=== PATIENT | female | born 1970 | race Caucasian/White ===

== ENCOUNTER → 2017-08-09 | Outpatient (CLI) | payer OTHER ==
--- NOTE | 2017-08-09 15:53 | RAD ---
EXAM: Cervical spine, 3 views; thoracic spine, 3 views. HISTORY: Nontraumatic pain. COMPARISON: None. FINDINGS: Cervical spine: Frontal, lateral and odontoid views of the cervical spine are obtained. There is slight reversal of cervical lordosis, likely positional. There is no significant listhesis. The vertebral bodies are normal in height and the disc spaces are preserved. Thoracic spine: Frontal, lateral and swimmer's views of the thoracic spine are obtained. There is minimal thoracic dextroscoliosis centered at the midthoracic levels. There is no listhesis. The vertebral bodies are normal in height and the disc spaces are preserved. There are cholecystectomy clips. IMPRESSION: No acute osseous finding.
== END | disposition home or self-care (01) ==
LOC: DXRADRC 14:23
PROVIDERS: ATTEND Nurse Practitioner Family
DX: M41.84 Other forms of scoliosis, thoracic region (principal); M54.2 Cervicalgia
CPT/HCPCS: 72040; 72072